=== PATIENT | female | born 1975 ===

== ENCOUNTER 2025-03-08 05:39 | Day surgery (SDC) | payer OTHER ==
[2025-03-03 08:39] LABS: BASO % 0.3 % (0.1-1.2); EOS % 1.6 % (0.7-7.0); HEMATOCRIT 40.8 % (34.1-44.9); HEMOGLOBIN 13.7 g/dL (11.2-15.7); LYMPH # 1.68 (1.18-3.74); MONO # 0.58 (0.24-0.82); MONO % 9.3 % (4.7-12.5); NEUT # 3.81 (1.56-6.13); NEUT % 61.2 % (34.0-71.1); PLATELET COUNT 290 K/uL (163-369); RED BLOOD COUNT 4.73 M/uL (3.93-5.22); RED CELL DISTRIBUTION WIDTH 13.1 % (11.6-14.4)
[2025-03-03 08:41] LABS: PH,URINE 5.5 (5.0-8.0); URINE APPEARANCE Cloudy; URINE BILIRRUBIN Negative (NEGATIVE); URINE BLOOD Negative; URINE COLOR Yellow; URINE GLUCOSE Negative (NEGATIVE); URINE KETONE 15 (NEGATIVE); URINE LEUKOCYTE Negative; URINE NITRATE Negative; URINE PROTEIN Negative (NEGATIVE)
[2025-03-03 08:43] LABS: URINE BACTERIA 3464.9 uL (0.0-1933); URINE EPITHELIAL CELLS 110.8 uL (0.0-38.8); URINE RBC 4.8 uL (0.0-20.8); URINE WBC 49.7 uL (0.0-23.2)
[2025-03-03 09:09] LABS: INR 1.03; PARTIAL THROMBOPLASTIN TIME 30.8 SECONDS (22.0-34.0); PROTHROMBIN TIME 11.2 SECONDS (9.0-11.5)
[2025-03-03 09:49] VITALS: BP 120/85
[2025-03-03 10:03] LABS: ALBUMIN 3.6 gm/dL (3.4-5.0); BILIRUBIN TOTAL 1.21 mg/dL (0.3-1.2); CALCIUM 8.8 mg/dL (8.5-10.1); CREATININE SERUM 0.57 mg/dL (0.55-1.02); GFR 112.27; GLOBULINA 3.3 G/DL (2.4-3.5); POTASSIUM 3.98 mEq/L (3.5-5.1); TOTAL PROTEIN 6.9 gm/dL (6.4-8.2)
[~2025-03-08] VITALS: Ht 172.7 cm; Wt 93.4 kg
[~2025-03-08 05:39] MED LIST: MULTIPLE VITAM1 EAC2 PO; WEGOVY1 MG/0.5 M
[2025-03-08] MEDS ORDERED: CEFAZOLIN SODIUM 1,000 MG VIAL ONE (07:43)
[2025-03-08] MEDS ORDERED: MORPHINE SULFATE 4 MG/ML VIAL IV ONE (12:25)
== END 2025-03-08 13:45 | disposition home or self-care (01) ==
LOC: CIR.AMB 05:39
PROVIDERS: ATTEND Surgery
DX: K80.10 Calculus of gallbladder with chronic cholecystitis without obstruction (principal)